=== PATIENT | female | born 1940 | race Hispanic/Latino ===

== ENCOUNTER 2018-08-29 06:57 | Inpatient (IN) | payer MEDICARE ==
[~2018-08-29] VITALS: Ht 167.6 cm; Wt 67.7 kg
[2018-08-29] MEDS ORDERED: ONDANSETRON HCL 4 MG/2 ML VIAL ONE (08:15)
[2018-08-29 08:29] LABS: BASOPHILS % (AUTO) 0.6 % (0.0-5.0); EOSINOPHILS % (AUTO) 0.3 % (0.0-8.0); HEMATOCRIT 31.4 % (36-48); LYMPHOCYTES % (AUTO) 14.6 % (21.0-51.0); MEAN CORPUSCULAR HEMOGLOBIN 35.7 pg (27.0-33.0); MEAN CORPUSCULAR HGB CONC 33.1 g/dL (32.0-36.0); MEAN CORPUSCULAR VOLUME 107.7 fL (79-99); MONOCYTES % (AUTO) 13.3 % (3.0-13.0); NEUTROPHILS % (AUTO) 71.2 % (40.0-77.0); PLATELET COUNT (AUTO) 145 K/uL (130-400); RED BLOOD CELL COUNT(AUTO) 2.91 MIL/uL (4.00-5.50); RED CELL DISTRIBUTION WIDTH 15.7 % (11.0-15.5); WHITE BLOOD COUNT (AUTO) 5.5 K/uL (4.8-10.8)
[2018-08-29 09:02] LABS: CREATININE 4.6 mg/dL (0.5-1.5); INR 0.97 (0.85-1.15); PARTIAL THROMBOPLASTIN TIME 31.5 SEC (26.3-35.5); POTASSIUM 4.8 mmol/L (3.5-5.1); PROTHROMBIN TIME 10.2 SEC (9.6-11.6)
[2018-08-29 09:06] LABS: BILIRUBIN,TOTAL 0.7 mg/dL (0.2-1.0); TOTAL PROTEIN, SERUM 7.8 g/dL (6.0-8.3)
[2018-08-29 09:45] LABS: BILIRUBIN,URINE NEGATIVE (NEGATIVE); COLOR,URINE YELLOW (YELLOW); GLUCOSE, URINE (UA) 100 mg/dL (NEGATIVE); KETONES,URINE NEGATIVE (NEGATIVE); LEUKOCYTE ESTERASE ,URINE SMALL (NEGATIVE); NITRATE,URINE NEGATIVE (NEGATIVE); OCCULT BLOOD,URINE TRACE-LYSED (NEGATIVE); PH,URINE >=9.0 (5.0-8.0); PROTEIN,URINE >=300 mg/dL (NEGATIVE)
[2018-08-29] MEDS ORDERED: CEFTRIAXONE SODIUM 1 GM ONE (09:52)
[2018-08-29] MEDS ORDERED: LEVOFLOXACIN 500 MG/D5W 100 ML 100 ML ONE (09:52)
[2018-08-29 10:01] LABS: APPEARANCE,URINE CLEAR (CLEAR); RBC,URINE 0-1 /HPF (0-1)
[2018-08-29 10:02] LABS: BACTERIA,URINE Few /HPF (None Seen)
[2018-08-29] MEDS: GUAIFENESIN-DM 200/20 MG 10 ML PO SCH ×4 (10:30→22:35)
[2018-08-29] MEDS ORDERED: ONDANSETRON HCL 4 MG/2 ML VIAL IV PRN (10:45)
[2018-08-29] MEDS ORDERED: LACTULOSE 20 GM/30 ML UDCUP PO PRN (10:45)
[2018-08-29] MEDS: INSULIN HUMULIN R 100 UNIT/ML 3ML SQ SCH ×3 (11:30→21:10)
[2018-08-29] MEDS ORDERED: IPRATROPIUM/ALBUTEROL SULFATE 3 ML SOLUTION IH ONE (12:21)
[2018-08-29] MEDS: IPRATROPIUM/ALBUTEROL SULFATE 3 ML SOLUTION IH SCH ×3 (12:24→23:10)
[2018-08-29 14:20] VITALS: BP 146/46
--- NOTE | 2018-08-29 14:30 | NUR ---
ADMISSION Received to room 228 via stretcher from ED. Upon arrival, pt is in no apparent distress. On room air. Diminished breath sounds. Non-productive cough. SL to RAC patent. Left arm AV fistula in place. (+) bruit/thrill. Last HD treatment 08/28/18. Assessment completed/recorded. Admission process completed. Present on arrival - non-healing ulcer to volar surface of right foot, base of right great toes. Existing drsg removed. Wound care rendered - painted with betadine, covered with non-adherent gauze drsg and secured with erin. Pt denies pain to site. Pt reports her outpt cut pressman is from [facility] office - ongoing treatment for approx. one year. States she visits MD every two weeks. Oriented to room, call light. Questions addressed.
[2018-08-29 16:08] VITALS: BP 174/59
[2018-08-29] MEDS: ACETAMINOPHEN 325 MG TAB PO PRN (16:56)
--- NOTE | 2018-08-29 17:00 | NUR ---
MD VISIT in to see pt - updated. Orders received - refer to chart.
[2018-08-29] MEDS ORDERED: LISI-613 PO (18:43)
[2018-08-29] MEDS ORDERED: vit d3 (18:43)
[2018-08-29] MEDS ORDERED: GLIP2.5T2 PO (18:43)
[2018-08-29] MEDS ORDERED: ONDA4TAB4 PO (18:43)
[2018-08-29] MEDS ORDERED: ATOR20TA PO (18:43)
[2018-08-29] MEDS ORDERED: BENZ-39 PO (18:43)
[2018-08-29] MEDS ORDERED: ASCO500T9 PO (18:43)
[2018-08-29] MEDS ORDERED: ESOM20CA31 PO (18:43)
[2018-08-29] MEDS ORDERED: VITA400C70 PO (18:43)
[2018-08-29] MEDS ORDERED: FOLI1TAB61 PO (18:43)
[2018-08-29] MEDS ORDERED: METO-391 PO (18:43)
[2018-08-29] MEDS ORDERED: ASPI-555 PO (18:43)
[2018-08-29 19:50] VITALS: BP 153/60
[2018-08-29] MEDS: DOCUSATE SODIUM 100 MG CAP PO SCH (20:29)
[2018-08-29] MEDS: FAMOTIDINE 20MG TAB 20 MG TAB PO SCH (20:29)
[2018-08-29] MEDS: BENZONATATE 100 MG CAPSULE PO SCH (20:29)
[2018-08-30] VITALS (7 sets, daily range): BP systolic 124–180; BP diastolic 44–70
[2018-08-30] MEDS: ACETAMINOPHEN 325 MG TAB PO PRN ×2 (02:57→21:41)
[2018-08-30 03:37] LABS: HEMATOCRIT 29.9 % (36-48); MEAN CORPUSCULAR HEMOGLOBIN 36.6 pg (27.0-33.0); MEAN CORPUSCULAR VOLUME 107.4 fL (79-99); PLATELET COUNT (AUTO) 134 K/uL (130-400); RED BLOOD CELL COUNT(AUTO) 2.79 MIL/uL (4.00-5.50); RED CELL DISTRIBUTION WIDTH 15.3 % (11.0-15.5); WHITE BLOOD COUNT (AUTO) 4.7 K/uL (4.8-10.8)
[2018-08-30 03:40] LABS: BAND NEUTROPHILS % (MANUAL) 20 % (0-2); LYMPHOCYTES % (MANUAL) 16 % (22-44); MAN.DIFF COMMENT-IMPRESSION MANUAL DIFFERENTIAL; MONOCYTES % (MANUAL) 4 % (2-9); PLATELET MORPHOLOGY COMMENT ADEQUATE; SEGMENTED NEUTROPHILS % 60 % (40-70)
[2018-08-30 03:58] LABS: ALBUMIN 2.8 g/dL (3.5-5.0); BILIRUBIN,DIRECT 0.1 mg/dL (0.0-0.3); BILIRUBIN,TOTAL 0.4 mg/dL (0.2-1.0); PHOSPHORUS 3.5 mg/dL (2.5-4.9); TOTAL PROTEIN, SERUM 7.3 g/dL (6.0-8.3)
[2018-08-30] MEDS: GUAIFENESIN-DM 200/20 MG 10 ML PO SCH ×6 (04:30→21:55)
[2018-08-30] MEDS: BENZONATATE 100 MG CAPSULE PO SCH ×3 (05:27→20:41)
[2018-08-30] MEDS: INSULIN HUMULIN R 100 UNIT/ML 3ML SQ SCH ×5 (06:11→20:43)
[2018-08-30] MEDS: IPRATROPIUM/ALBUTEROL SULFATE 3 ML SOLUTION IH SCH ×3 (06:41→18:59)
[2018-08-30] MEDS: DOCUSATE SODIUM 100 MG CAP PO SCH ×2 (09:45→20:50)
[2018-08-30] MEDS: LEVOFLOXACIN 250 MG/D5W 50ML 50 ML IV SCH (09:45)
[2018-08-30] MEDS: CEFTRIAXONE SODIUM 500 MG VIAL IV SCH (09:45)
[2018-08-30] MEDS: ENOXAPARIN SODIUM 30 MG/0.3 ML SQ SCH (09:46)
--- NOTE | 2018-08-30 11:18 | NUR ---
INITIAL: Met with pt this morning to discuss dcp. Pt states that she lives alone. Prior to admission she was independent w ambulation and aDLs. She has a walker avail if needed. Pt att[facility] @ 1pm. She has provider services 3hr/day. Per pt she plans to stay w her dtr Antonette @ dc if needed. Her sister Diana will assist w transportation. CM to continue to follow and wait for Md recommendations. Addendum: 08/30/18 at 1120 by CLARICE STEEN Amended: Links added.
[2018-08-30] MEDS ORDERED: BENZONATATE 100 MG CAPSULE PO PRN (12:00)
[2018-08-30] MEDS ORDERED: ONDANSETRON 4 MG TABLET PO PRN (12:00)
[2018-08-30] MEDS ORDERED: LISINOPRIL 10 MG TABLET PO SCH (13:30)
[2018-08-30] MEDS ORDERED: METOPROLOL TARTRATE 25 MG TAB PO SCH ×2 (13:30→21:00)
--- NOTE | 2018-08-30 13:30 | NUR ---
[facility] CONSULT CALLED IN. ADITI BRADFORD WAS UPDATED ON PATIENTS STATUS.
[2018-08-30] MEDS ORDERED: EPOETIN ALFA 10,000 UNIT/ML VIAL SQ SCH (14:00)
[2018-08-30] MEDS: PHARMACY COMMUNICATION MISC SCH ×2 (14:30→21:34)
[2018-08-30] MEDS ORDERED: HYDRALAZINE HCL 20 MG/ML VIAL IM PRN (15:00)
[2018-08-30] MEDS ORDERED: ONDANSETRON HCL 4 MG/2 ML VIAL IVP PRN (15:00)
[2018-08-30] MEDS: ATORVASTATIN CALCIUM 20 MG TABLET PO SCH (20:36)
[2018-08-30] MEDS: FAMOTIDINE 20MG TAB 20 MG TAB PO SCH (20:36)
[2018-08-30] MEDS: METHYLPREDNISOLONE SOD SUCC 40MG/ML 1ML IVP SCH (20:36)
[2018-08-30] MEDS: LISINOPRIL 20 MG TABLET PO SCH (20:37)
[2018-08-30] MEDS: METOPROLOL TARTRATE 25 MG TAB PO SCH (20:37)
[2018-08-30] MEDS: SODIUM CHLORIDE 3% FOR INHALATION 4 ML/AMP VIAL.NEB IH SCH (23:33)
[2018-08-31] VITALS (8 sets, daily range): BP systolic 154–192; BP diastolic 64–85
[2018-08-31] MEDS: GUAIFENESIN-DM 200/20 MG 10 ML PO SCH ×4 (03:34→22:41)
[2018-08-31 03:48] LABS: HEMATOCRIT 32.2 % (36-48); MEAN CORPUSCULAR HEMOGLOBIN 35.9 pg (27.0-33.0); MEAN CORPUSCULAR HGB CONC 33.5 g/dL (32.0-36.0); MEAN CORPUSCULAR VOLUME 107.2 fL (79-99); NUCLEATED RED BLOOD CELLS 0.1 % (0.0-0.19); PLATELET COUNT (AUTO) 141 K/uL (130-400); RED CELL DISTRIBUTION WIDTH 15.8 % (11.0-15.5); WHITE BLOOD COUNT (AUTO) 5.4 K/uL (4.8-10.8)
[2018-08-31] MEDS: METHYLPREDNISOLONE SOD SUCC 40MG/ML 1ML IVP SCH ×3 (04:28→21:38)
[2018-08-31] MEDS: BENZONATATE 100 MG CAPSULE PO SCH ×3 (04:28→21:38)
[2018-08-31 04:38] LABS: ALBUMIN 2.8 g/dL (3.5-5.0); BILIRUBIN,TOTAL 0.7 mg/dL (0.2-1.0); CREATININE 4.5 mg/dL (0.5-1.5); PHOSPHORUS 3.5 mg/dL (2.5-4.9); POTASSIUM 4.1 mmol/L (3.5-5.1); TOTAL PROTEIN, SERUM 7.8 g/dL (6.0-8.3)
[2018-08-31 04:48] LABS: TROPONIN I 2.13 ng/mL (0.00-0.06)
[2018-08-31 04:53] LABS: BAND NEUTROPHILS % (MANUAL) 12 % (0-2); LYMPHOCYTES % (MANUAL) 4 % (22-44); MAN.DIFF COMMENT-IMPRESSION MANUAL DIFFERENTIAL; MONOCYTES % (MANUAL) 16 % (2-9); PLATELET MORPHOLOGY COMMENT ADEQUATE; SEGMENTED NEUTROPHILS % 68 % (40-70)
[2018-08-31] MEDS: PHARMACY COMMUNICATION MISC SCH (05:38)
[2018-08-31] MEDS: INSULIN HUMULIN R 100 UNIT/ML 3ML SQ SCH ×4 (05:43→21:47)
[2018-08-31] MEDS: ESOMEPRAZOLE MAGNESIUM 20 MG PO SCH (05:47)
[2018-08-31] MEDS: SODIUM CHLORIDE 3% FOR INHALATION 4 ML/AMP VIAL.NEB IH SCH ×3 (07:34→18:52)
[2018-08-31] MEDS: FOLIC ACID/VITAMIN B COMP W-C 1 MG CAPSULE PO SCH (09:41)
[2018-08-31] MEDS: DOCUSATE SODIUM 100 MG CAP PO SCH ×2 (09:42→21:38)
[2018-08-31] MEDS: VITAMIN E 400 UNIT CAPSULE PO SCH (09:42)
[2018-08-31] MEDS: LISINOPRIL 20 MG TABLET PO SCH ×2 (09:42→21:38)
[2018-08-31] MEDS: METOPROLOL TARTRATE 25 MG TAB PO SCH ×2 (09:42→21:38)
[2018-08-31] MEDS: ASCORBIC ACID 500 MG TAB PO SCH (09:42)
[2018-08-31] MEDS: ENOXAPARIN SODIUM 30 MG/0.3 ML SQ SCH (09:43)
[2018-08-31] MEDS: ASPIRIN 81 MG EC TAB PO SCH (09:43)
[2018-08-31] MEDS: LEVOFLOXACIN 250 MG/D5W 50ML 50 ML IV SCH (09:44)
[2018-08-31] MEDS: CEFTRIAXONE SODIUM 500 MG VIAL IV SCH (11:08)
[2018-08-31] MEDS: AMLODIPINE BESYLATE 5 MG TAB PO SCH (11:12)
[2018-08-31] MEDS ORDERED: PHARMACY COMMUNICATION MISC SCH ×2 (12:00→21:30)
[2018-08-31] MEDS ORDERED: COMPOUND IV REFRIGERATED 1 EACH IVSOLN MISC PRN (12:15)
[2018-08-31] MEDS: IRON SUCROSE COMPLEX 100 MG in SODIUM CHLORIDE 0.9% 50 ML IV SCH (12:21)
[2018-08-31] MEDS: FAMOTIDINE 20MG TAB 20 MG TAB PO SCH (21:38)
[2018-08-31] MEDS: ATORVASTATIN CALCIUM 20 MG TABLET PO SCH (21:38)
--- NOTE | 2018-08-31 21:40 | NUR ---
MEDS DUE MEDS ADMINISTERED, TOLERATED WELL. NO DISTRESS NOTED. KEPT RESTED AND COMFORTABLE. ENCOURAGED TO SLEEP. CALL LIGHT WITHIN REACH. WILL MONITOR PT.
[2018-09-01] MEDS: SODIUM CHLORIDE 3% FOR INHALATION 4 ML/AMP VIAL.NEB IH SCH ×5 (00:14→23:19)
--- NOTE | 2018-09-01 02:00 | NUR ---
ROUNDS PT RESTING WELL, FAIRLY ASLEEP WITH RESPIRATIONS EVEN AND UNLABORED. NO NOTED DISTRESS. KEPT UNDISTURBED FOR NOW. WILL MONITOR PT.
[2018-09-01 03:58] VITALS: BP 148/65
[2018-09-01] MEDS: GUAIFENESIN-DM 200/20 MG 10 ML PO SCH ×4 (03:58→23:38)
[2018-09-01] MEDS: BENZONATATE 100 MG CAPSULE PO SCH ×3 (05:22→23:37)
[2018-09-01] MEDS: METHYLPREDNISOLONE SOD SUCC 40MG/ML 1ML IVP SCH ×3 (05:22→23:36)
--- NOTE | 2018-09-01 05:22 | NUR ---
SHOWER PT JUST HAD HER SHOWER, TOLERATED ACTIVITY WELL. DUE MEDS ADMINISTERED, TOLERATED WELL. KEPT RESTED. FOR MORE CARE.
[2018-09-01 06:04] LABS: HEMATOCRIT 32.3 % (36-48); MEAN CORPUSCULAR HEMOGLOBIN 36.2 pg (27.0-33.0); MEAN CORPUSCULAR HGB CONC 34.1 g/dL (32.0-36.0); NUCLEATED RED BLOOD CELLS 0.2 % (0.0-0.19); PLATELET COUNT (AUTO) 166 K/uL (130-400); RED BLOOD CELL COUNT(AUTO) 3.05 MIL/uL (4.00-5.50); RED CELL DISTRIBUTION WIDTH 15.8 % (11.0-15.5); WHITE BLOOD COUNT (AUTO) 10.9 K/uL (4.8-10.8)
[2018-09-01 06:15] LABS: CREATININE 5.8 mg/dL (0.5-1.5); POTASSIUM 4.5 mmol/L (3.5-5.1)
[2018-09-01] MEDS: ESOMEPRAZOLE MAGNESIUM 20 MG PO SCH (06:32)
[2018-09-01] MEDS: INSULIN HUMULIN R 100 UNIT/ML 3ML SQ SCH ×4 (06:33→21:00)
[2018-09-01 07:02] LABS: % IRON SATURATION 91.1 % (22-44)
[2018-09-01 08:00] VITALS: BP 180/80
[2018-09-01 08:16] LABS: HEPATITIS A ANTIBODY IGM Negative (Negative); HEPATITIS B CORE IGM Negative (Negative); HEPATITIS Bs ANTIGEN SCREEN P Negative (Negative)
[2018-09-01] MEDS: LISINOPRIL 20 MG TABLET PO SCH ×2 (09:00→23:37)
[2018-09-01] MEDS: AMLODIPINE BESYLATE 5 MG TAB PO SCH (09:00)
[2018-09-01] MEDS: ASCORBIC ACID 500 MG TAB PO SCH (09:00)
--- NOTE | 2018-09-01 09:00 | NUR ---
NORVASC AND LISINOPRIL HELD DUE TO PATIENT HAVING DIALYSIS TODAY PER DIALYSIS NURSE.
[2018-09-01] MEDS: FOLIC ACID/VITAMIN B COMP W-C 1 MG CAPSULE PO SCH (09:01)
[2018-09-01] MEDS: METOPROLOL TARTRATE 25 MG TAB PO SCH ×2 (09:01→23:38)
[2018-09-01] MEDS: ASPIRIN 81 MG EC TAB PO SCH (09:01)
[2018-09-01] MEDS: DOCUSATE SODIUM 100 MG CAP PO SCH ×2 (09:02→23:37)
[2018-09-01] MEDS: VITAMIN E 400 UNIT CAPSULE PO SCH (09:04)
[2018-09-01] MEDS: ENOXAPARIN SODIUM 30 MG/0.3 ML SQ SCH (09:05)
[2018-09-01] MEDS: LEVOFLOXACIN 250 MG/D5W 50ML 50 ML IV SCH (09:07)
[2018-09-01] MEDS: IRON SUCROSE COMPLEX 100 MG in SODIUM CHLORIDE 0.9% 50 ML IV SCH (09:54)
[2018-09-01] MEDS: CEFTRIAXONE SODIUM 500 MG VIAL IV SCH (09:56)
[2018-09-01 11:00] VITALS: BP 157/72
[2018-09-01 16:00] VITALS: BP 147/57
[2018-09-01 19:34] VITALS: BP 185/86
--- NOTE | 2018-09-01 21:05 | NUR ---
PATIENT REFUSED TO HAVE NASAL PCR PERFORMED. PENDING SPUTUM CULTURE
[2018-09-01 23:04] VITALS: BP 177/69
[2018-09-01] MEDS: ATORVASTATIN CALCIUM 20 MG TABLET PO SCH (23:37)
[2018-09-01] MEDS: FAMOTIDINE 20MG TAB 20 MG TAB PO SCH (23:37)
[2018-09-02 03:45] VITALS: BP 150/69
[2018-09-02] MEDS: BENZONATATE 100 MG CAPSULE PO SCH ×3 (05:12→21:10)
[2018-09-02] MEDS: METHYLPREDNISOLONE SOD SUCC 40MG/ML 1ML IVP SCH (05:12)
[2018-09-02] MEDS: GUAIFENESIN-DM 200/20 MG 10 ML PO SCH ×4 (05:12→22:30)
[2018-09-02 06:02] LABS: HEMATOCRIT 31.5 % (36-48); MEAN CORPUSCULAR HEMOGLOBIN 34.4 pg (27.0-33.0); MEAN CORPUSCULAR HGB CONC 32.6 g/dL (32.0-36.0); MEAN CORPUSCULAR VOLUME 105.3 fL (79-99); PLATELET COUNT (AUTO) 203 K/uL (130-400); RED BLOOD CELL COUNT(AUTO) 2.99 MIL/uL (4.00-5.50); RED CELL DISTRIBUTION WIDTH 15.8 % (11.0-15.5); WHITE BLOOD COUNT (AUTO) 12.4 K/uL (4.8-10.8)
[2018-09-02] MEDS: SODIUM CHLORIDE 3% FOR INHALATION 4 ML/AMP VIAL.NEB IH SCH ×4 (06:04→23:23)
[2018-09-02 06:27] LABS: CREATININE 3.3 mg/dL (0.5-1.5); POTASSIUM 3.9 mmol/L (3.5-5.1)
[2018-09-02] MEDS: INSULIN HUMULIN R 100 UNIT/ML 3ML SQ SCH ×4 (06:34→21:16)
[2018-09-02 07:30] VITALS: BP 196/76
[2018-09-02] MEDS: ESOMEPRAZOLE MAGNESIUM 20 MG PO SCH (07:30)
[2018-09-02] MEDS: VITAMIN E 400 UNIT CAPSULE PO SCH (08:44)
[2018-09-02] MEDS: ASPIRIN 81 MG EC TAB PO SCH (08:44)
[2018-09-02] MEDS: LISINOPRIL 20 MG TABLET PO SCH ×2 (08:44→21:10)
[2018-09-02] MEDS: AMLODIPINE BESYLATE 5 MG TAB PO SCH (08:44)
[2018-09-02] MEDS: FOLIC ACID/VITAMIN B COMP W-C 1 MG CAPSULE PO SCH (08:44)
[2018-09-02] MEDS: LEVOFLOXACIN 250 MG/D5W 50ML 50 ML IV SCH (08:44)
[2018-09-02] MEDS: ASCORBIC ACID 500 MG TAB PO SCH (08:44)
[2018-09-02] MEDS: DOCUSATE SODIUM 100 MG CAP PO SCH ×2 (08:44→21:10)
[2018-09-02] MEDS: METOPROLOL TARTRATE 25 MG TAB PO SCH ×2 (08:44→21:10)
[2018-09-02] MEDS: ENOXAPARIN SODIUM 30 MG/0.3 ML SQ SCH (08:45)
[2018-09-02] MEDS: CEFTRIAXONE SODIUM 500 MG VIAL IV SCH (09:00)
[2018-09-02 11:00] VITALS: BP 186/71
[2018-09-02 16:00] VITALS: BP 128/54
[2018-09-02 20:00] VITALS: BP 134/62
[2018-09-02] MEDS: FAMOTIDINE 20MG TAB 20 MG TAB PO SCH (21:09)
[2018-09-02] MEDS: ATORVASTATIN CALCIUM 20 MG TABLET PO SCH (21:10)
[2018-09-03] VITALS: BP 119/57
[2018-09-03 04:00] VITALS: BP 141/52
[2018-09-03] MEDS: BENZONATATE 100 MG CAPSULE PO SCH ×2 (04:21→13:52)
[2018-09-03] MEDS: GUAIFENESIN-DM 200/20 MG 10 ML PO SCH ×3 (04:21→17:15)
--- NOTE | 2018-09-03 04:32 | NUR ---
NO COUGH Pt slept well,Refused cough med.
[2018-09-03 04:58] LABS: HEMATOCRIT 29.9 % (36-48); MEAN CORPUSCULAR HEMOGLOBIN 35.8 pg (27.0-33.0); MEAN CORPUSCULAR HGB CONC 33.8 g/dL (32.0-36.0); MEAN CORPUSCULAR VOLUME 105.8 fL (79-99); NUCLEATED RED BLOOD CELLS 0.1 % (0.0-0.19); PLATELET COUNT (AUTO) 200 K/uL (130-400); RED BLOOD CELL COUNT(AUTO) 2.82 MIL/uL (4.00-5.50); RED CELL DISTRIBUTION WIDTH 15.9 % (11.0-15.5); WHITE BLOOD COUNT (AUTO) 10.6 K/uL (4.8-10.8)
[2018-09-03 05:05] LABS: CREATININE 4.9 mg/dL (0.5-1.5); MAGNESIUM 1.8 mg/dL (1.80-2.40); POTASSIUM 3.5 mmol/L (3.5-5.1)
[2018-09-03] MEDS: ESOMEPRAZOLE MAGNESIUM 20 MG PO SCH (05:41)
[2018-09-03] MEDS: INSULIN HUMULIN R 100 UNIT/ML 3ML SQ SCH ×3 (05:41→17:15)
[2018-09-03 06:11] LABS: BAND NEUTROPHILS % (MANUAL) 6 % (0-2); LYMPHOCYTES % (MANUAL) 18 % (22-44); MAN.DIFF COMMENT-IMPRESSION MANUAL DIF; METAMYELOCYTES % 1 % (0-0); MONOCYTES % (MANUAL) 4 % (2-9); PLATELET MORPHOLOGY COMMENT ADEQUATE; SEGMENTED NEUTROPHILS % 71 % (40-70)
[2018-09-03] MEDS: SODIUM CHLORIDE 3% FOR INHALATION 4 ML/AMP VIAL.NEB IH SCH ×2 (06:21→10:54)
[2018-09-03 08:14] VITALS: BP 182/65
[2018-09-03] MEDS ORDERED: NON-FORMULARY MEDICATION 1 EACH (Metoprolol Succinate 50 MG) PO SCH (09:00)
[2018-09-03] MEDS ORDERED: PREDNISONE 20 MG TABLET PO SCH (09:00)
[2018-09-03] MEDS: METOPROLOL TARTRATE 25 MG TAB PO SCH (11:32)
[2018-09-03] MEDS: ASCORBIC ACID 500 MG TAB PO SCH (11:32)
[2018-09-03] MEDS: DOCUSATE SODIUM 100 MG CAP PO SCH (11:32)
[2018-09-03] MEDS: VITAMIN E 400 UNIT CAPSULE PO SCH (11:32)
[2018-09-03] MEDS: FOLIC ACID/VITAMIN B COMP W-C 1 MG CAPSULE PO SCH (11:32)
[2018-09-03] MEDS: ASPIRIN 81 MG EC TAB PO SCH (11:32)
[2018-09-03] MEDS: AMLODIPINE BESYLATE 5 MG TAB PO SCH (11:32)
[2018-09-03] MEDS: LISINOPRIL 20 MG TABLET PO SCH (11:33)
[2018-09-03] MEDS: ENOXAPARIN SODIUM 30 MG/0.3 ML SQ SCH (11:33)
[2018-09-03] MEDS: LEVOFLOXACIN 250 MG/D5W 50ML 50 ML IV SCH (11:38)
[2018-09-03 11:43] VITALS: BP 131/62
[2018-09-03] MEDS: ACETAMINOPHEN 325 MG TAB PO PRN (11:50)
[2018-09-03] MEDS: CEFTRIAXONE SODIUM 500 MG VIAL IV SCH (12:40)
[2018-09-03] MEDS ORDERED: MAGNESIUM 2GM PREMIX 50ML 50 ML IV PRN (14:00)
[2018-09-03] MEDS ORDERED: LEVO250T59 PO (15:21)
[2018-09-03 16:09] VITALS: BP 134/64
--- NOTE | 2018-09-03 18:00 | NUR ---
DISCHARGE INSTRUCTIONS GIVEN. IV DISCONTINUED WITH INNER CANNULA INTACT . INSTRUCTED TO FOLLOW UP WITH PCP AND DR. FOX OFFICE. ALL QUESTIONS ANSWERED. PATIENT TO MAKE APPOINTMENT ON THURSDAY .L
== END 2018-09-03 18:00 | disposition home or self-care (01) | DRG 280 ==
LOC: EDH 06:57 → EDHIP 10:33 → 2DH 14:15 → 3DH 08-31 06:32
PROVIDERS: ADMIT Internal Medicine; ATTEND Internal Medicine
PROC: 5A1D70Z Performance of Urinary Filtration, Intermittent, Less than 6 Hours Per Day (ICD-10-PCS; principal; 2018-08-30)
PROC: 5A1D70Z Performance of Urinary Filtration, Intermittent, Less than 6 Hours Per Day (ICD-10-PCS; 2018-09-01)
PROC: 5A1D70Z Performance of Urinary Filtration, Intermittent, Less than 6 Hours Per Day (ICD-10-PCS; 2018-09-03)
DX: I21.4 Non-ST elevation (NSTEMI) myocardial infarction (principal); J18.9 Pneumonia, unspecified organism; N18.6 End stage renal disease; J18.1 Lobar pneumonia, unspecified organism; E44.1 Mild protein-calorie malnutrition; I12.0 Hypertensive chronic kidney disease with stage 5 chronic kidney disease or end stage renal disease; J40 Bronchitis, not specified as acute or chronic; E11.21 Type 2 diabetes mellitus with diabetic nephropathy; E11.22 Type 2 diabetes mellitus with diabetic chronic kidney disease; D64.9 Anemia, unspecified; E11.51 Type 2 diabetes mellitus with diabetic peripheral angiopathy without gangrene; E78.5 Hyperlipidemia, unspecified; E87.70 Fluid overload, unspecified; I25.10 Atherosclerotic heart disease of native coronary artery without angina pectoris; I25.5 Ischemic cardiomyopathy; I34.0 Nonrheumatic mitral (valve) insufficiency; K21.9 Gastro-esophageal reflux disease without esophagitis; K40.20 Bilateral inguinal hernia, without obstruction or gangrene, not specified as recurrent; E11.65 Type 2 diabetes mellitus with hyperglycemia; K57.90 Diverticulosis of intestine, part unspecified, without perforation or abscess without bleeding; K59.00 Constipation, unspecified; I25.2 Old myocardial infarction; Z90.11 Acquired absence of right breast and nipple; Z90.710 Acquired absence of both cervix and uterus; Z99.2 Dependence on renal dialysis; Z68.24 Body mass index [BMI] 24.0-24.9, adult; Z88.0 Allergy status to penicillin; Z88.5 Allergy status to narcotic agent
CPT/HCPCS: 36415; 71045; 71250; 74176; 76705; 80048; 80053; 80061; 80074; 80076; 81001; 82150; 82550; 82728; 82948; 83540; 83550; 83605; 83690; 83735; 83874; 84100; 84484; 85025; 85027; 85610; 85730; 87040; 87804; 90935; 93005; 94640; 94664; 94668; G0378; J0360; J0696; J0885; J1650; J1756; J1815; J1956; J2405; J2920; J3475

== ENCOUNTER 2018-12-03 18:13 | Observation (INO) | payer MEDICARE ==
[~2018-12-03] VITALS: Ht 167.6 cm; Wt 71.0 kg
[~2018-12-03 18:13] MED LIST: ASCO500T9 PO; ASPI-555 PO; ATOR20TA PO; BENZ-39 PO; ESOM20CA31 PO; FOLI1TAB61 PO; GLIP2.5T2 PO; LEVO250T59 PO; LISI-613 PO; METO-391 PO; ONDA4TAB4 PO; VITA400C70 PO; vit d3
[2018-12-03 18:45] LABS: BASOPHILS % (AUTO) 0.3 % (0.0-5.0); EOSINOPHILS % (AUTO) 1.7 % (0.0-8.0); HEMATOCRIT 37.3 % (36-48); LYMPHOCYTES % (AUTO) 16.4 % (21.0-51.0); MEAN CORPUSCULAR HEMOGLOBIN 36.7 pg (27.0-33.0); MEAN CORPUSCULAR HGB CONC 33.7 g/dL (32.0-36.0); MONOCYTES % (AUTO) 9.8 % (3.0-13.0); NEUTROPHILS % (AUTO) 71.8 % (40.0-77.0); PLATELET COUNT (AUTO) 166 K/uL (130-400); RED BLOOD CELL COUNT(AUTO) 3.43 MIL/uL (4.00-5.50); RED CELL DISTRIBUTION WIDTH 15.7 % (11.0-15.5); WHITE BLOOD COUNT (AUTO) 8.6 K/uL (4.8-10.8)
[2018-12-03 18:52] LABS: CREATININE 3.2 mg/dL (0.5-1.5); POTASSIUM 4.2 mmol/L (3.5-5.1)
[2018-12-03 18:54] LABS: INR 0.95 (0.85-1.15); PARTIAL THROMBOPLASTIN TIME 28.9 SEC (26.3-35.5)
[2018-12-03 19:01] LABS: ALBUMIN 3.7 g/dL (3.5-5.0); BILIRUBIN,TOTAL 0.8 mg/dL (0.2-1.0); TOTAL PROTEIN, SERUM 8.8 g/dL (6.0-8.3)
[2018-12-03] MEDS ORDERED: HYDRALAZINE HCL 20 MG/ML VIAL ONE (19:46)
[2018-12-03] MEDS ORDERED: HYDRALAZINE HCL 20 MG/ML VIAL IV PRN (23:30)
[2018-12-04 00:20] VITALS: BP 162/61
[2018-12-04] MEDS ORDERED: LEVO250T59 PO (01:04)
[2018-12-04] MEDS ORDERED: METO-408 PO (01:04)
[2018-12-04] MEDS ORDERED: DORZ10DR14 OU (01:04)
[2018-12-04] MEDS ORDERED: BIMA2.5D4 OU (01:04)
[2018-12-04] MEDS ORDERED: DEXTROSE 50%-WATER 50 ML DISP.SYRIN IV PRN (02:15)
[2018-12-04] MEDS ORDERED: GLUCAGON 1MG KIT 1 MG ML IM PRN (02:15)
[2018-12-04 03:20] VITALS: BP 124/52
[2018-12-04 05:43] LABS: BASOPHILS % (AUTO) 0.5 % (0.0-5.0); HEMATOCRIT 33.7 % (36-48); LYMPHOCYTES % (AUTO) 34.3 % (21.0-51.0); MEAN CORPUSCULAR VOLUME 108.6 fL (79-99); MONOCYTES % (AUTO) 14.3 % (3.0-13.0); NEUTROPHILS % (AUTO) 47.9 % (40.0-77.0); NUCLEATED RED BLOOD CELLS 0.1 % (0.0-0.19); PLATELET COUNT (AUTO) 132 K/uL (130-400); RED CELL DISTRIBUTION WIDTH 15.1 % (11.0-15.5); WHITE BLOOD COUNT (AUTO) 6.5 K/uL (4.8-10.8)
--- NOTE | 2018-12-04 05:50 | NUR ---
HYPOGLYCEMIA-Low blood sugar 52mg/dl, administered one ampule D50 IV. Patient AAOx3, asymptomatic. Will continue to monitor.
[2018-12-04 05:55] LABS: BILIRUBIN,TOTAL 0.7 mg/dL (0.2-1.0); CREATININE 4.1 mg/dL (0.5-1.5); MAGNESIUM 1.7 mg/dL (1.80-2.40); POTASSIUM 4.4 mmol/L (3.5-5.1); TOTAL PROTEIN, SERUM 7.4 g/dL (6.0-8.3)
[2018-12-04] MEDS: INSULIN HUMULIN R 100 UNIT/ML 3ML SQ SCH ×2 (05:56→11:30)
--- NOTE | 2018-12-04 07:00 | NUR ---
HYPOGLYCEMIA-Blood sugar re-sfnyy=830oi/dl after 1 ampule of D50. Patient AAOx3, no acute distress noted.
[2018-12-04 08:00] VITALS: BP 144/59
[2018-12-04] MEDS ORDERED: FAMOTIDINE 20MG TAB 20 MG TAB PO SCH (09:00)
[2018-12-04] MEDS ORDERED: ***HM***Metoprolol Succinate 25 MG PO SCH (09:00)
[2018-12-04] MEDS ORDERED: VITAMIN E 400 UNIT CAPSULE PO SCH (09:00)
[2018-12-04] MEDS ORDERED: HEPARIN SODIUM 5000UNIT/ML 1ML VIAL SQ SCH (09:00)
[2018-12-04] MEDS ORDERED: DORZOLAMIDE HCL/TIMOLOL MALEAT DROPS 10 ML BOTTLE OU SCH (09:00)
[2018-12-04] MEDS ORDERED: ASPIRIN 81 MG EC TAB PO SCH (09:00)
[2018-12-04] MEDS ORDERED: ASCORBIC ACID 500 MG TAB PO SCH (09:00)
[2018-12-04] MEDS ORDERED: FOLIC ACID/VITAMIN B COMP W-C 1 MG CAP/TAB PO SCH (09:00)
[2018-12-04 12:00] VITALS: BP 164/79
[2018-12-04] MEDS ORDERED: GABAPENTIN 100 MG CAPSULE PO SCH (14:15)
[2018-12-04] MEDS ORDERED: ATORVASTATIN CALCIUM 20 MG TABLET PO SCH (21:00)
[2018-12-04] MEDS ORDERED: HOME MEDICATION 1 EACH PO SCH (21:00)
[2018-12-04] MEDS ORDERED: BIMATOPROST OU SCH (21:00)
[2018-12-05] MEDS ORDERED: GABAPENTIN 100 MG CAPSULE PO SCH (09:00)
== END 2018-12-04 17:50 | disposition home or self-care (01) ==
LOC: EDH 18:13 → EDHIP 23:21 → 3AH 12-04 00:25
PROVIDERS: ADMIT Internal Medicine; ATTEND Internal Medicine
DX: R41.82 Altered mental status, unspecified (principal); I16.0 Hypertensive urgency; I12.0 Hypertensive chronic kidney disease with stage 5 chronic kidney disease or end stage renal disease; N18.6 End stage renal disease; R42 Dizziness and giddiness; E11.22 Type 2 diabetes mellitus with diabetic chronic kidney disease; E11.42 Type 2 diabetes mellitus with diabetic polyneuropathy; E78.5 Hyperlipidemia, unspecified; E87.1 Hypo-osmolality and hyponatremia; E11.621 Type 2 diabetes mellitus with foot ulcer; L97.519 Non-pressure chronic ulcer of other part of right foot with unspecified severity; Z89.429 Acquired absence of other toe(s), unspecified side; Z90.710 Acquired absence of both cervix and uterus; Z99.2 Dependence on renal dialysis; Z88.0 Allergy status to penicillin; Z88.5 Allergy status to narcotic agent; Z79.899 Other long term (current) drug therapy
CPT/HCPCS: 36415 ×2; 70450; 70551; 71045; 80053 ×2; 82550; 82948 ×4; 83721; 83735; 84484; 85025 ×2; 85610; 85730; 93005 ×2; 93970; 96372; 96374; 99284; A4600; G0378 ×18; J0360; J1644; J7070

== ENCOUNTER 2019-01-27 15:59 | Emergency (ER) | payer MEDICARE ==
[~2019-01-27 15:59] MED LIST changes: -BENZ-39 PO; +BIMA2.5D4 OU; +DORZ10DR14 OU; -LISI-613 PO; -METO-391 PO; +METO-408 PO; -ONDA4TAB4 PO
[2019-01-27] MEDS ORDERED: HYDRALAZINE HCL 20 MG/ML VIAL ONE (17:23)
[2019-01-27 17:53] LABS: BASOPHILS % (AUTO) 0.4 % (0.0-5.0); EOSINOPHILS % (AUTO) 1.4 % (0.0-8.0); HEMATOCRIT 34.1 % (36-48); LYMPHOCYTES % (AUTO) 26.6 % (21.0-51.0); MEAN CORPUSCULAR HEMOGLOBIN 35.2 pg (27.0-33.0); MEAN CORPUSCULAR HGB CONC 33.9 g/dL (32.0-36.0); MEAN CORPUSCULAR VOLUME 103.7 fL (79-99); NEUTROPHILS % (AUTO) 60.6 % (40.0-77.0); PLATELET COUNT (AUTO) 127 K/uL (130-400); RED BLOOD CELL COUNT(AUTO) 3.29 MIL/uL (4.00-5.50); RED CELL DISTRIBUTION WIDTH 14.9 % (11.0-15.5); WHITE BLOOD COUNT (AUTO) 8.2 K/uL (4.8-10.8)
[2019-01-27 18:01] LABS: CREATININE 4.6 mg/dL (0.5-1.5); POTASSIUM 4.5 mmol/L (3.5-5.1)
[2019-01-27 18:05] LABS: ALBUMIN 3.6 g/dL (3.5-5.0); BILIRUBIN,TOTAL 0.5 mg/dL (0.2-1.0); TOTAL PROTEIN, SERUM 8.4 g/dL (6.0-8.3)
== END 2019-01-27 19:23 | disposition home or self-care (01) ==
LOC: EDH 15:59
DX: I16.0 Hypertensive urgency (principal); I12.0 Hypertensive chronic kidney disease with stage 5 chronic kidney disease or end stage renal disease; N18.6 End stage renal disease; E11.22 Type 2 diabetes mellitus with diabetic chronic kidney disease; E78.5 Hyperlipidemia, unspecified; Z88.0 Allergy status to penicillin; Z88.6 Allergy status to analgesic agent; Z99.2 Dependence on renal dialysis
CPT/HCPCS: 36415; 80053; 82550; 84484; 85025; 93005; 96374; 99285; J0360

== ENCOUNTER → 2019-11-08 | Outpatient (CLI) | payer MEDICARE ==
[~2019-11-08] MED LIST changes: +ASCO500T20 PO; -ASCO500T9 PO; -ASPI-555 PO; +ASPI-556 PO; -LEVO250T59 PO; +METO25 PO; +PRED10B PO; +VITA-164 PO; -VITA400C70 PO
== END | disposition home or self-care (01) ==
LOC: SHCH 10:35
PROVIDERS: ATTEND Internal Medicine Cardiovascular Disease
DX: I65.21 Occlusion and stenosis of right carotid artery (principal); I10 Essential (primary) hypertension
CPT/HCPCS: 93306; 93880

== ENCOUNTER 2019-12-02 16:17 | Inpatient (IN) | payer MEDICARE ==
[~2019-12-02] VITALS: Ht 167.6 cm; Wt 67.9 kg
[2019-12-02] MEDS ORDERED: ASPIRIN 325 MG TABLET ONE (16:26)
[2019-12-02 16:37] LABS: BASOPHILS % (AUTO) 0.4 % (0.0-5.0); EOSINOPHILS % (AUTO) 1.2 % (0.0-8.0); HEMATOCRIT 33.6 % (36-48); LYMPHOCYTES % (AUTO) 11.2 % (21.0-51.0); MEAN CORPUSCULAR HEMOGLOBIN 33.9 pg (27.0-33.0); MEAN CORPUSCULAR VOLUME 109.4 fL (79-99); NEUTROPHILS % (AUTO) 73.6 % (40.0-77.0); PLATELET COUNT (AUTO) 227 K/uL (130-400); RED BLOOD CELL COUNT(AUTO) 3.07 MIL/uL (4.00-5.50); RED CELL DISTRIBUTION WIDTH 15.1 % (11.0-15.5); WHITE BLOOD COUNT (AUTO) 11.3 K/uL (4.8-10.8)
[2019-12-02 16:50] LABS: INR 0.94 (0.85-1.15); PROTHROMBIN TIME 10.2 SEC (9.6-11.6)
[2019-12-02 16:53] LABS: ALBUMIN 2.6 g/dL (3.5-5.0); BILIRUBIN,TOTAL 0.5 mg/dL (0.2-1.0); CREATININE 6.8 mg/dL (0.5-1.5); POTASSIUM 4.4 mmol/L (3.5-5.1); TOTAL PROTEIN, SERUM 8.3 g/dL (6.0-8.3)
[2019-12-02 17:04] LABS: B-TYPE NATRIURETIC PEPTIDE 2410 pg/mL (0-100)
[2019-12-02] MEDS ORDERED: INSULIN HUMULIN R 100 UNIT/ML 3ML ONE (17:33)
[2019-12-02] MEDS ORDERED: IOHEXOL-350 75 ML VIAL IV ONE (19:21)
[2019-12-03] VITALS (7 sets, daily range): BP systolic 103–168; BP diastolic 47–71
--- NOTE | 2019-12-03 00:15 | NUR ---
REPORT RECEIVED FROM VIOLETA HERNÁNDEZ. PT ADMITTED FOR FLUID OVER LOAD AND POSSIBLE PNA. PT IS HAVING POSSIBLE HD IN THE AM.
[2019-12-03 05:19] LABS: HEMATOCRIT 29.9 % (36-48); MEAN CORPUSCULAR HGB CONC 32.8 g/dL (32.0-36.0); MEAN CORPUSCULAR VOLUME 106.8 fL (79-99); PLATELET COUNT (AUTO) 227 K/uL (130-400); RED CELL DISTRIBUTION WIDTH 15.2 % (11.0-15.5); WHITE BLOOD COUNT (AUTO) 11.5 K/uL (4.8-10.8)
[2019-12-03 05:31] LABS: POTASSIUM 4.6 mmol/L (3.5-5.1)
[2019-12-03 05:38] LABS: BAND NEUTROPHILS % (MANUAL) 5 % (0-2); EOSINOPHILS % (MANUAL) 4 % (1-6); LYMPHOCYTES % (MANUAL) 16 % (22-44); MAN.DIFF COMMENT-IMPRESSION MANUAL DIFFERENTIAL; MONOCYTES % (MANUAL) 10 % (2-9); PLATELET MORPHOLOGY COMMENT ADEQUATE; SEGMENTED NEUTROPHILS % 65 % (40-70)
[2019-12-03] MEDS: INSULIN R PO SS1 SQ SCH ×4 (06:08→22:42)
[2019-12-03] MEDS ORDERED: HYDROMORPHONE 1 MG/1 ML AMP IVP PRN (06:15)
[2019-12-03] MEDS ORDERED: ONDANSETRON HCL 4 MG/2 ML VIAL IVP PRN (06:15)
[2019-12-03] MEDS ORDERED: GLUCAGON 1MG KIT 1 MG ML IM PRN (06:15)
[2019-12-03] MEDS ORDERED: DEXTROSE 50%-WATER 50 ML DISP.SYRIN IV PRN (06:15)
[2019-12-03] MEDS ORDERED: INSULIN HUMULIN R 100 UNIT/ML 3ML SQ SCH (07:30)
[2019-12-03] MEDS: ACETAMINOPHEN 325 MG TAB PO PRN (09:00)
[2019-12-03] MEDS: PANTOPRAZOLE 40 MG/VIAL IVP SCH (09:49)
[2019-12-03] MEDS: AZITHROMYCIN 500MG+NS 250ML 250 ML IV SCH (09:50)
[2019-12-03] MEDS: ENOXAPARIN SODIUM 30 MG/0.3 ML SQ SCH (09:51)
[2019-12-03] MEDS: CEFTRIAXONE SODIUM 1 GM IVP SCH (13:09)
--- NOTE | 2019-12-03 15:54 | NUR ---
CM NOTE CM attempted call to room. No answer. CM then attempted call to [phone], no answer left voicemail. CM also attempted call to [phone], no answer unable to leave message. CM to reattempt at a later time.
[2019-12-04] MEDS ORDERED: CALC667T8 PO (00:40)
[2019-12-04] MEDS ORDERED: METO-391 PO (00:40)
[2019-12-04] MEDS ORDERED: PANT20TA PO (00:40)
[2019-12-04] MEDS ORDERED: GLIP2.5T2 PO (00:40)
[2019-12-04] MEDS ORDERED: CHOL100018 PO (00:40)
[2019-12-04] MEDS ORDERED: ASPI-1197 PO (00:40)
[2019-12-04] MEDS ORDERED: ATOR10 PO (00:40)
[2019-12-04] MEDS ORDERED: ASCO500C18 PO (00:40)
[2019-12-04] MEDS ORDERED: VITA100051 PO (00:40)
[2019-12-04] MEDS ORDERED: FOLI0.8T2 PO (00:40)
[2019-12-04 04:00] VITALS: BP 119/85
--- NOTE | 2019-12-04 05:44 | NUR ---
PATIENT RESTING IN BED. DENIES SOB AT THIS TIME. NO BLEEDING TO THE RESHMA FISTULA. NO SWELLING TO EXTREMITIES. WILL CONTINUE TO MONITOR.
[2019-12-04 06:09] VITALS: BP 119/70
[2019-12-04] MEDS: INSULIN R PO SS1 SQ SCH ×4 (07:30→20:26)
[2019-12-04] MEDS: ENOXAPARIN SODIUM 30 MG/0.3 ML SQ SCH (10:56)
[2019-12-04] MEDS: AZITHROMYCIN 500MG+NS 250ML 250 ML IV SCH (10:56)
[2019-12-04] MEDS: PANTOPRAZOLE 40 MG/VIAL IVP SCH (10:56)
[2019-12-04 11:00] VITALS: BP 116/57
[2019-12-04] MEDS: CEFTRIAXONE SODIUM 1 GM IVP SCH (13:35)
[2019-12-04 16:00] VITALS: BP 143/63
--- NOTE | 2019-12-04 18:06 | NUR ---
cm note spoke with pt, daughter Tanesha Shaw currently staying with her at home. states is indepedent with ambulation, no dme. has provider 3hrs to assist with some adls, daughter transports to dialysis. pt goes ni [facility] schedule. state dc plan is back to same setting at time of dc. no dc needs. Addendum: 12/04/19 at 1810 by RONEN BO CM Amended: Links added.
[2019-12-04 20:00] VITALS: BP 144/65
[2019-12-05] VITALS (8 sets, daily range): BP systolic 102–157; BP diastolic 52–88
[2019-12-05] MEDS: ACETAMINOPHEN 325 MG TAB PO PRN ×2 (04:00→17:14)
[2019-12-05 05:30] LABS: BASOPHILS % (AUTO) 0.8 % (0.0-5.0); EOSINOPHILS % (AUTO) 3.3 % (0.0-8.0); HEMATOCRIT 30.1 % (36-48); LYMPHOCYTES % (AUTO) 18.8 % (21.0-51.0); MEAN CORPUSCULAR HEMOGLOBIN 34.5 pg (27.0-33.0); MEAN CORPUSCULAR HGB CONC 31.9 g/dL (32.0-36.0); MEAN CORPUSCULAR VOLUME 108.3 fL (79-99); MONOCYTES % (AUTO) 14.1 % (3.0-13.0); NEUTROPHILS % (AUTO) 62.4 % (40.0-77.0); PLATELET COUNT (AUTO) 281 K/uL (130-400); RED BLOOD CELL COUNT(AUTO) 2.78 MIL/uL (4.00-5.50); RED CELL DISTRIBUTION WIDTH 14.9 % (11.0-15.5); WHITE BLOOD COUNT (AUTO) 9.5 K/uL (4.8-10.8)
[2019-12-05 06:21] LABS: ALBUMIN 2.2 g/dL (3.5-5.0); BILIRUBIN,TOTAL 0.4 mg/dL (0.2-1.0); CREATININE 6.4 mg/dL (0.5-1.5); PHOSPHORUS 3.7 mg/dL (2.5-4.9); TOTAL PROTEIN, SERUM 7.6 g/dL (6.0-8.3)
[2019-12-05] MEDS: INSULIN R PO SS1 SQ SCH ×4 (06:23→20:41)
[2019-12-05] MEDS: AZITHROMYCIN 500MG+NS 250ML 250 ML IV SCH (08:44)
[2019-12-05] MEDS: PANTOPRAZOLE 40 MG/VIAL IVP SCH (08:45)
[2019-12-05] MEDS: ENOXAPARIN SODIUM 30 MG/0.3 ML SQ SCH (08:46)
[2019-12-05] MEDS: CEFTRIAXONE SODIUM 1 GM IVP SCH ×2 (13:00→18:29)
--- NOTE | 2019-12-05 14:54 | NUR ---
per EDGAR Pena - patient is on Dialysis.Will attempt to initiate skilled Physical Therapy evaluation tomorrow 12/06/2019 as per ordered by . Addendum: 12/05/19 at 1456 by VIKASH RICO, PT PT Amended: Links added.
--- NOTE | 2019-12-05 15:56 | NUR ---
PAGED DR. FOX TO NOTIFY RE:PT. CONVERTED TO AFIB-106; ASYMPTOMATIC. AWAITING RESPONSE.
[2019-12-05 18:09] LABS: HEPATITIS A ANTIBODY IGM Negative (Negative); HEPATITIS B CORE IGM Negative (Negative); HEPATITIS Bs ANTIGEN SCREEN P Negative (Negative)
[2019-12-05] MEDS: METOPROLOL SUCCINATE 50 MG TAB.SR.24H PO SCH (20:41)
--- NOTE | 2019-12-05 22:36 | NUR ---
Assessment Patient has been assessed. She is not showing any S/S of distress. Vitals are stable as well. The ulcer on her right foot has been cleansed and dressed. She is being closely monitored.
--- NOTE | 2019-12-05 22:39 | NUR ---
Consult for Obinna Yeboah refused the consult for the patient. His reasoning is that this is not a new onset for the patient, HR is stable, and that she is already covered with metoprolol.
[2019-12-06 03:48] VITALS: BP 114/56
[2019-12-06 05:10] LABS: HEMATOCRIT 31.7 % (36-48); MEAN CORPUSCULAR HEMOGLOBIN 34.3 pg (27.0-33.0); MEAN CORPUSCULAR HGB CONC 32.2 g/dL (32.0-36.0); MEAN CORPUSCULAR VOLUME 106.7 fL (79-99); RED BLOOD CELL COUNT(AUTO) 2.97 MIL/uL (4.00-5.50); RED CELL DISTRIBUTION WIDTH 14.7 % (11.0-15.5); WHITE BLOOD COUNT (AUTO) 8.9 K/uL (4.8-10.8)
[2019-12-06 05:13] LABS: CREATININE 4.5 mg/dL (0.5-1.5); POTASSIUM 3.9 mmol/L (3.5-5.1)
[2019-12-06] MEDS: INSULIN R PO SS1 SQ SCH ×4 (05:50→20:55)
[2019-12-06 08:37] VITALS: BP 120/72
[2019-12-06] MEDS: METOPROLOL SUCCINATE 50 MG TAB.SR.24H PO SCH ×2 (08:53→20:54)
[2019-12-06] MEDS: ASPIRIN 81 MG EC TAB PO SCH (08:53)
[2019-12-06] MEDS: AZITHROMYCIN 500MG+NS 250ML 250 ML IV SCH (08:53)
[2019-12-06] MEDS: PANTOPRAZOLE 40 MG/VIAL IVP SCH (08:57)
[2019-12-06] MEDS: ENOXAPARIN SODIUM 30 MG/0.3 ML SQ SCH (08:58)
--- NOTE | 2019-12-06 11:15 | NUR ---
RECEIVED CALL FROM PT.'S SON. QUESTIONS ANSWERED RE:COVID TESTING PERFORMED, VERBALIZED UNDERSTANDING. Addendum: 12/06/19 at 1213 by KIT GOMEZ RN RN PT.'S SON ASKED THREE TIMES IF DR. FOX HAD SEEN PT. THIS A.M.; SON INFORMED THREE TIMES DR. FOX HAS NOT ROUNDED YET TODAY.
--- NOTE | 2019-12-06 11:48 | NUR ---
DR. FOX IN ROOM SPEAKING WITH PT. RE:PLAN OF CARE. QUESTIONS ANSWERED BY DR. FOX.
[2019-12-06] MEDS: CEFTRIAXONE SODIUM 1 GM IVP SCH (12:09)
[2019-12-06 12:57] VITALS: BP 127/72
[2019-12-06 16:30] VITALS: BP 142/67
[2019-12-06 19:58] VITALS: BP 129/69
[2019-12-06 23:33] VITALS: BP 130/60
[2019-12-07 04:16] VITALS: BP 114/61
[2019-12-07 05:53] LABS: HEMATOCRIT 32.6 % (36-48); MEAN CORPUSCULAR HGB CONC 31.6 g/dL (32.0-36.0); MEAN CORPUSCULAR VOLUME 107.6 fL (79-99); RED BLOOD CELL COUNT(AUTO) 3.03 MIL/uL (4.00-5.50); RED CELL DISTRIBUTION WIDTH 14.6 % (11.0-15.5); WHITE BLOOD COUNT (AUTO) 8.4 K/uL (4.8-10.8)
[2019-12-07 05:58] LABS: CREATININE 6.1 mg/dL (0.5-1.5); MAGNESIUM 1.9 mg/dL (1.80-2.40); POTASSIUM 4.3 mmol/L (3.5-5.1)
[2019-12-07] MEDS: INSULIN R PO SS1 SQ SCH ×3 (06:13→15:35)
[2019-12-07 08:00] VITALS: BP 122/57
[2019-12-07] MEDS: METOPROLOL SUCCINATE 50 MG TAB.SR.24H PO SCH (10:20)
[2019-12-07] MEDS: PANTOPRAZOLE 40 MG/VIAL IVP SCH (10:21)
[2019-12-07] MEDS: ASPIRIN 81 MG EC TAB PO SCH (10:21)
[2019-12-07] MEDS: AZITHROMYCIN 500MG+NS 250ML 250 ML IV SCH (10:21)
[2019-12-07] MEDS: ENOXAPARIN SODIUM 30 MG/0.3 ML SQ SCH (10:22)
[2019-12-07 11:47] VITALS: BP 125/72
[2019-12-07] MEDS: CEFTRIAXONE SODIUM 1 GM IVP SCH (13:00)
[2019-12-07 16:00] VITALS: BP 139/77
== END 2019-12-07 18:50 | disposition home or self-care (01) | DRG 193 ==
LOC: EDH 16:17 → EDHIP 20:40 → 4DH 12-03 00:06 → 4CH 12-04 21:35
PROVIDERS: ADMIT Internal Medicine Nephrology; ATTEND Internal Medicine Nephrology
PROC: 5A1D70Z Performance of Urinary Filtration, Intermittent, Less than 6 Hours Per Day (ICD-10-PCS; principal; 2019-12-03)
PROC: 5A1D70Z Performance of Urinary Filtration, Intermittent, Less than 6 Hours Per Day (ICD-10-PCS; 2019-12-05)
PROC: 5A1D70Z Performance of Urinary Filtration, Intermittent, Less than 6 Hours Per Day (ICD-10-PCS; 2019-12-07)
DX: J18.9 Pneumonia, unspecified organism (principal); N18.6 End stage renal disease; I12.0 Hypertensive chronic kidney disease with stage 5 chronic kidney disease or end stage renal disease; J98.11 Atelectasis; Z99.2 Dependence on renal dialysis; Z20.828 Contact with and (suspected) exposure to other viral communicable diseases; D64.9 Anemia, unspecified; E11.22 Type 2 diabetes mellitus with diabetic chronic kidney disease; E11.51 Type 2 diabetes mellitus with diabetic peripheral angiopathy without gangrene; E78.5 Hyperlipidemia, unspecified; E87.70 Fluid overload, unspecified; I48.0 Paroxysmal atrial fibrillation; Z90.710 Acquired absence of both cervix and uterus; Z88.5 Allergy status to narcotic agent; Z88.0 Allergy status to penicillin; Z79.899 Other long term (current) drug therapy
CPT/HCPCS: 36415; 71045; 71275; 80048; 80053; 80074; 82550; 82948; 83735; 83880; 84100; 84443; 84484; 85025; 85027; 85378; 85610; 85730; 87040; 87426; 90935; 93005; C9113; G0378; J0456; J0696; J1650; J1815; Q9967; U0003

== ENCOUNTER → 2020-06-26 | Outpatient (CLI) | payer MEDICARE ==
[~2020-06-26] MED LIST changes: +ASCO500C18 PO; -ASCO500T20 PO; +ASPI-1197 PO; -ASPI-556 PO; +ATOR10 PO; -ATOR20TA PO; -BIMA2.5D4 OU; +CALC667T8 PO; +CHOL-34 PO; -DORZ10DR14 OU; -ESOM20CA31 PO; +FOLI0.8T2 PO; -FOLI1TAB61 PO; +METO-391 PO; -METO-408 PO; -METO25 PO; +PANT20TA PO; -PRED10B PO; -VITA-164 PO; +VITA100051 PO; -vit d3
== END | disposition home or self-care (01) ==
LOC: SHCH 08:37
PROVIDERS: ATTEND Internal Medicine Cardiovascular Disease
DX: I08.1 Rheumatic disorders of both mitral and tricuspid valves (principal); R01.1 Cardiac murmur, unspecified; E78.5 Hyperlipidemia, unspecified; E11.9 Type 2 diabetes mellitus without complications; I27.20 Pulmonary hypertension, unspecified
CPT/HCPCS: 93306; 93356

== ENCOUNTER → 2020-06-28 | Outpatient (CLI) | payer MEDICARE ==
[~2020-06-28] VITALS: Ht 167.6 cm; Wt 71.2 kg
[~2020-06-28] MED LIST changes: +REGADENOSON 0.4 MG/5 ML PF SYG IVP SCH
== END | disposition home or self-care (01) ==
LOC: SHCH 08:02
PROVIDERS: ATTEND Internal Medicine Cardiovascular Disease
DX: I10 Essential (primary) hypertension (principal); I25.10 Atherosclerotic heart disease of native coronary artery without angina pectoris
CPT/HCPCS: 78452; 93017; 96374; A9500 ×2; J2785

== ENCOUNTER 2021-07-17 15:02 | Emergency (ER) | payer MEDICARE ==
[~2021-07-17 15:02] MED LIST changes: +APIX2.5T PO; -ASPI-1197 PO; +DOXY100T2 PO; +FOLI0.8T43 PO; +GABA-529 PO; -GLIP2.5T2 PO; +OSEL30CA PO; -REGADENOSON 0.4 MG/5 ML PF SYG IVP SCH
[2021-07-17 15:23] LABS: BASOPHILS % (AUTO) 0.5 % (0.0-5.0); EOSINOPHILS % (AUTO) 1.3 % (0.0-8.0); LYMPHOCYTES % (AUTO) 15.5 % (21.0-51.0); MEAN CORPUSCULAR HEMOGLOBIN 36.9 pg (27.0-33.0); MEAN CORPUSCULAR HGB CONC 31.4 g/dL (32.0-36.0); MEAN CORPUSCULAR VOLUME 117.6 fL (79-99); MONOCYTES % (AUTO) 9.8 % (3.0-13.0); NEUTROPHILS % (AUTO) 72.4 % (40.0-77.0); PLATELET COUNT (AUTO) 125 K/uL (130-400); RED BLOOD CELL COUNT(AUTO) 3.06 MIL/uL (4.00-5.50); RED CELL DISTRIBUTION WIDTH 15.3 % (11.0-15.5); WHITE BLOOD COUNT (AUTO) 8.4 K/uL (4.8-10.8)
[2021-07-17] MEDS ORDERED: ONDANSETRON 4MG INJ IVP ONE (15:30)
[2021-07-17 15:34] LABS: CREATININE 2.6 mg/dL (0.5-1.5); POTASSIUM 3.7 mmol/L (3.5-5.1)
[2021-07-17 15:41] LABS: ALBUMIN 3.2 g/dL (3.5-5.0); BILIRUBIN,TOTAL 1.1 mg/dL (0.2-1.0); TOTAL PROTEIN, SERUM 8.5 g/dL (6.0-8.3)
[2021-07-17 15:59] LABS: PLATELET MORPHOLOGY LARGE PLTS PRESENT
[2021-07-17] MEDS ORDERED: ONDA4TAB10 PO (16:28)
[2021-07-17 16:30] VITALS: BP 144/50
== END 2021-07-17 16:49 | disposition home or self-care (01) ==
LOC: EDH 15:02
DX: A08.4 Viral intestinal infection, unspecified (principal); R03.0 Elevated blood-pressure reading, without diagnosis of hypertension; E11.22 Type 2 diabetes mellitus with diabetic chronic kidney disease; N18.6 End stage renal disease; Z99.2 Dependence on renal dialysis; E78.00 Pure hypercholesterolemia, unspecified; Z88.0 Allergy status to penicillin; Z88.5 Allergy status to narcotic agent; Z79.899 Other long term (current) drug therapy; Z79.01 Long term (current) use of anticoagulants
CPT/HCPCS: 36415; 80053; 83605; 83690; 84484; 85025; 87804 ×2; 96374; 99283; J2405

== ENCOUNTER 2021-08-06 10:13 | Emergency (ER) | payer MEDICARE ==
[~2021-08-06] VITALS: Ht 167.6 cm; Wt 67.1 kg
[~2021-08-06 10:13] MED LIST changes: +ONDA4TAB10 PO
[2021-08-06 11:03] LABS: BASOPHILS % (AUTO) 0.7 % (0.0-5.0); EOSINOPHILS % (AUTO) 0.7 % (0.0-8.0); HEMATOCRIT 36.6 % (36-48); LYMPHOCYTES % (AUTO) 20.6 % (21.0-51.0); MEAN CORPUSCULAR HEMOGLOBIN 37.5 pg (27.0-33.0); MEAN CORPUSCULAR HGB CONC 31.4 g/dL (32.0-36.0); MEAN CORPUSCULAR VOLUME 119.2 fL (79-99); MONOCYTES % (AUTO) 14.2 % (3.0-13.0); NEUTROPHILS % (AUTO) 63.4 % (40.0-77.0); PLATELET COUNT (AUTO) 131 K/uL (130-400); RED BLOOD CELL COUNT(AUTO) 3.07 MIL/uL (4.00-5.50); RED CELL DISTRIBUTION WIDTH 15.2 % (11.0-15.5); WHITE BLOOD COUNT (AUTO) 8.3 K/uL (4.8-10.8)
[2021-08-06 11:18] LABS: CREATININE 7.7 mg/dL (0.5-1.5)
[2021-08-06 11:22] LABS: ALBUMIN 3.5 g/dL (3.5-5.0); BILIRUBIN,TOTAL 0.9 mg/dL (0.2-1.0); TOTAL PROTEIN, SERUM 8.8 g/dL (6.0-8.3)
[2021-08-06] MEDS ORDERED: ONDANSETRON 4MG INJ ONE (11:25)
[2021-08-06] MEDS ORDERED: 0.9%NACL 1000ML 500 ML IV ONE (11:30)
[2021-08-06] MEDS ORDERED: ONDANSETRON 4MG INJ IVP ONE (11:30)
[2021-08-06] MEDS ORDERED: ONDA4TAB10 PO (13:09)
[2021-08-06] MEDS ORDERED: DIPH1TAB PO (13:09)
[2021-08-06 13:26] VITALS: BP 188/98
== END 2021-08-06 13:30 | disposition home or self-care (01) ==
LOC: EDH 10:13
DX: A08.4 Viral intestinal infection, unspecified (principal); E86.9 Volume depletion, unspecified; I12.0 Hypertensive chronic kidney disease with stage 5 chronic kidney disease or end stage renal disease; E11.22 Type 2 diabetes mellitus with diabetic chronic kidney disease; N18.6 End stage renal disease; I48.91 Unspecified atrial fibrillation; E78.00 Pure hypercholesterolemia, unspecified; Z88.0 Allergy status to penicillin; Z88.5 Allergy status to narcotic agent; Z79.01 Long term (current) use of anticoagulants; Z79.899 Other long term (current) drug therapy
CPT/HCPCS: 36415; 80053; 83690; 85025; 96374; 99283; J2405; J7040

== ENCOUNTER 2021-11-27 09:58 | Inpatient (IN) | payer MEDICARE ==
[~2021-11-27] VITALS: Ht 165.1 cm; Wt 65.9 kg
[2021-11-27] VITALS (17 sets, daily range): BP systolic 94–140; BP diastolic 42–85
[~2021-11-27 09:58] MED LIST changes: +DIPH1TAB PO
[2021-11-27 10:58] LABS: BASOPHILS % (AUTO) 0.5 % (0.0-5.0); EOSINOPHILS % (AUTO) 1.2 % (0.0-8.0); HEMATOCRIT 36.8 % (36-48); LYMPHOCYTES % (AUTO) 17.7 % (21.0-51.0); MEAN CORPUSCULAR HEMOGLOBIN 37.4 pg (27.0-33.0); MEAN CORPUSCULAR HGB CONC 32.3 g/dL (32.0-36.0); MEAN CORPUSCULAR VOLUME 115.7 fL (79-99); MONOCYTES % (AUTO) 12.6 % (3.0-13.0); NEUTROPHILS % (AUTO) 67.5 % (40.0-77.0); PLATELET COUNT (AUTO) 102 K/uL (130-400); RED BLOOD CELL COUNT(AUTO) 3.18 MIL/uL (4.00-5.50); RED CELL DISTRIBUTION WIDTH 16.4 % (11.0-15.5); WHITE BLOOD COUNT (AUTO) 10.7 K/uL (4.8-10.8)
[2021-11-27 11:06] LABS: CREATININE 5.5 mg/dL (0.5-1.5)
[2021-11-27 11:11] LABS: ALBUMIN 2.9 g/dL (3.5-5.0); TOTAL PROTEIN, SERUM 8.3 g/dL (6.0-8.3)
[2021-11-27 11:42] LABS: B-TYPE NATRIURETIC PEPTIDE 2850 pg/mL (0-100)
[2021-11-27] MEDS ORDERED: BENZONATATE 100 MG CAPSULE PO STA (14:49)
[2021-11-27] MEDS ORDERED: BENZONATATE 100 MG CAPSULE PO ONE (14:49)
[2021-11-27] MEDS: BENZONATATE 100 MG CAPSULE PO SCH ×2 (15:00→22:45)
[2021-11-27] MEDS ORDERED: METO50TA9 PO (15:03)
[2021-11-27] MEDS ORDERED: GLIP2.5T2 PO (15:03)
[2021-11-27] MEDS: AZITHROMYCIN 500MG+NS 250ML 250 ML IV SCH (20:02)
[2021-11-27] MEDS: CEFTRIAXONE 1G VIAL IVP SCH (20:02)
[2021-11-28 04:20] VITALS: BP 94/47
[2021-11-28] MEDS: BENZONATATE 100 MG CAPSULE PO SCH ×3 (05:17→22:30)
[2021-11-28 07:10] VITALS: BP 132/61
[2021-11-28] MEDS: PANTOPRAZOLE 40 MG TAB DR PO SCH (08:24)
[2021-11-28] MEDS: LOPERAMIDE HCL 2 MG CAP PO PRN (11:22)
[2021-11-28 12:12] VITALS: BP 140/68
[2021-11-28 16:06] VITALS: BP 142/73
[2021-11-28] MEDS: CEFTRIAXONE 1G VIAL IVP SCH (16:24)
[2021-11-28] MEDS: AZITHROMYCIN 500MG+NS 250ML 250 ML IV SCH (16:25)
[2021-11-28 16:42] LABS: HEPATITIS B SURFACE ANTIGEN Reactive (Nonreactive)
[2021-11-28] MEDS: ONDANSETRON 4MG INJ IVP PRN ×2 (16:49→22:31)
[2021-11-28 20:45] VITALS: BP 136/65
[2021-11-28] MEDS: ACETAMINOPHEN 325 MG TAB PO PRN (22:31)
[2021-11-28 23:19] VITALS: BP 110/52
[2021-11-29] VITALS (17 sets, daily range): BP systolic 90–164; BP diastolic 40–93
[2021-11-29 05:23] LABS: BASOPHILS % (AUTO) 0.5 % (0.0-5.0); EOSINOPHILS % (AUTO) 1.3 % (0.0-8.0); HEMATOCRIT 34.3 % (36-48); LYMPHOCYTES % (AUTO) 21.7 % (21.0-51.0); MEAN CORPUSCULAR HEMOGLOBIN 36.7 pg (27.0-33.0); MEAN CORPUSCULAR HGB CONC 32.1 g/dL (32.0-36.0); MEAN CORPUSCULAR VOLUME 114.3 fL (79-99); MONOCYTES % (AUTO) 14.5 % (3.0-13.0); NEUTROPHILS % (AUTO) 61.6 % (40.0-77.0); PLATELET COUNT (AUTO) 113 K/uL (130-400); RED CELL DISTRIBUTION WIDTH 15.9 % (11.0-15.5); WHITE BLOOD COUNT (AUTO) 7.6 K/uL (4.8-10.8)
[2021-11-29 05:37] LABS: CREATININE 5.4 mg/dL (0.5-1.5); PHOSPHORUS 3.6 mg/dL (2.5-4.9); POTASSIUM 3.6 mmol/L (3.5-5.1)
[2021-11-29] MEDS: PANTOPRAZOLE 40 MG TAB DR PO SCH (06:32)
[2021-11-29] MEDS: BENZONATATE 100 MG CAPSULE PO SCH ×3 (06:32→22:10)
[2021-11-29] MEDS: ACETAMINOPHEN 325 MG TAB PO PRN (16:52)
[2021-11-29] MEDS: CEFTRIAXONE 1G VIAL IVP SCH (18:40)
[2021-11-29] MEDS: AZITHROMYCIN 500MG+NS 250ML 250 ML IV SCH (18:40)
[2021-11-29] MEDS: LOPERAMIDE HCL 2 MG CAP PO PRN (22:10)
[2021-11-30 00:22] VITALS: BP 124/70
[2021-11-30 04:47] VITALS: BP 123/62
[2021-11-30] MEDS: PANTOPRAZOLE 40 MG TAB DR PO SCH (05:46)
[2021-11-30] MEDS: BENZONATATE 100 MG CAPSULE PO SCH (05:46)
[2021-11-30 08:00] VITALS: BP 111/55
[2021-11-30] MEDS: LOPERAMIDE HCL 2 MG CAP PO PRN (10:26)
[2021-11-30] MEDS ORDERED: LEVO250S3 PO (11:33)
[2021-11-30 12:00] VITALS: BP 135/71
== END 2021-11-30 13:45 | disposition home or self-care (01) | DRG 193 ==
LOC: EDH 09:58 → EDHIP 14:15 → 3AH 16:29
PROVIDERS: ADMIT Internal Medicine Nephrology; ATTEND Internal Medicine Nephrology
PROC: 5A1D70Z Performance of Urinary Filtration, Intermittent, Less than 6 Hours Per Day (ICD-10-PCS; principal; 2021-11-27)
PROC: 5A1D70Z Performance of Urinary Filtration, Intermittent, Less than 6 Hours Per Day (ICD-10-PCS; 2021-11-29)
DX: J18.9 Pneumonia, unspecified organism (principal); N18.6 End stage renal disease; I12.0 Hypertensive chronic kidney disease with stage 5 chronic kidney disease or end stage renal disease; J91.8 Pleural effusion in other conditions classified elsewhere; Z20.822 Contact with and (suspected) exposure to COVID-19; E87.70 Fluid overload, unspecified; D64.9 Anemia, unspecified; E11.22 Type 2 diabetes mellitus with diabetic chronic kidney disease; E11.621 Type 2 diabetes mellitus with foot ulcer; E78.00 Pure hypercholesterolemia, unspecified; I48.91 Unspecified atrial fibrillation; J20.9 Acute bronchitis, unspecified; L97.509 Non-pressure chronic ulcer of other part of unspecified foot with unspecified severity; R09.02 Hypoxemia; R06.03 Acute respiratory distress; Z83.3 Family history of diabetes mellitus; Z90.710 Acquired absence of both cervix and uterus; Z91.11 Patient's noncompliance with dietary regimen; Z99.2 Dependence on renal dialysis
CPT/HCPCS: 36415; 71045; 80048; 80053; 82550; 82948; 83874; 83880; 84100; 84484; 85025; 86704; 86706; 87040; 87324; 87340; 87635; 87804; 90935; 93005; C9803; G0378; J0456; J0696; J2405

== ENCOUNTER 2022-01-20 09:37 | Inpatient (IN) | payer MEDICARE ==
[2022-01-20] VITALS (16 sets, daily range): BP systolic 92–131; BP diastolic 46–59
[~2022-01-20] VITALS: Ht 167.6 cm; Wt 58.6 kg
[~2022-01-20 09:37] MED LIST changes: -CALC667T8 PO; -DIPH1TAB PO; -DOXY100T2 PO; -FOLI0.8T2 PO; -GABA-529 PO; +GLIP2.5T2 PO; -METO-391 PO; +METO50TA9 PO; -ONDA4TAB10 PO; -OSEL30CA PO; +PHOSLOC PO
[2022-01-20 10:09] LABS: BASOPHILS % (AUTO) 0.3 % (0.0-5.0); EOSINOPHILS % (AUTO) 0.5 % (0.0-8.0); LYMPHOCYTES % (AUTO) 19.3 % (21.0-51.0); MEAN CORPUSCULAR HEMOGLOBIN 36.9 pg (27.0-33.0); MONOCYTES % (AUTO) 12.1 % (3.0-13.0); NEUTROPHILS % (AUTO) 67.3 % (40.0-77.0); PLATELET COUNT (AUTO) 214 K/uL (130-400); RED BLOOD CELL COUNT(AUTO) 2.41 MIL/uL (4.00-5.50); RED CELL DISTRIBUTION WIDTH 15.2 % (11.0-15.5); WHITE BLOOD COUNT (AUTO) 12.8 K/uL (4.8-10.8)
[2022-01-20 10:16] LABS: CREATININE 6.8 mg/dL (0.5-1.5); POTASSIUM 4.9 mmol/L (3.5-5.1)
[2022-01-20 10:24] LABS: ALBUMIN 2.4 g/dL (3.5-5.0); TOTAL PROTEIN, SERUM 8.4 g/dL (6.0-8.3)
[2022-01-20] MEDS ORDERED: CALC-125 PO (10:25)
[2022-01-20] MEDS ORDERED: MIDO10TA PO (10:25)
[2022-01-20] MEDS ORDERED: 0.9% NACL 250ML 250 ML IV ONE (10:30)
[2022-01-20 10:32] LABS: MAGNESIUM 1.7 mg/dL (1.80-2.40); PHOSPHORUS 3.3 mg/dL (2.5-4.9)
[2022-01-20] MEDS ORDERED: MAGNESIUM 2GM PREMIX 50ML 50 ML IV SCH (11:00)
[2022-01-20 12:00] LABS: HEMATOCRIT 25.9 % (36-48)
[2022-01-20 12:02] LABS: PROTHROMBIN TIME 10.9 SEC (9.6-11.6)
[2022-01-20] MEDS ORDERED: IOHEXOL 350 MG/ML 100ML INFUS..BTL IV ONE (12:18)
[2022-01-20] MEDS ORDERED: MAG/ALUM/SIMETH 30 ML UDCUP PO PRN (13:00)
[2022-01-20] MEDS ORDERED: ACETAMINOPHEN 325 MG TAB PO PRN ×2 (13:00)
[2022-01-20] MEDS ORDERED: ONDANSETRON 4MG INJ IV PRN (13:00)
[2022-01-20] MEDS ORDERED: OCTREOTIDE ACETATE 1,250 MCG in 0.9% NACL 250ML 250 ML IV SCH (13:30)
[2022-01-20 13:32] LABS: HEMOGLOBIN A1C 6.9 % (4.0-6.0)
[2022-01-20 14:01] LABS: HEMATOCRIT 25.6 % (36-48)
[2022-01-20] MEDS ORDERED: PEG 3350/NA SULF,BICARB,CL/KCL 4000 ML SOLN PO SCH (17:00)
[2022-01-20 20:37] LABS: HEMATOCRIT 25.7 % (36-48)
[2022-01-20] MEDS: PANTOPRAZOLE 40 MG/VIAL IVP SCH (22:21)
[2022-01-21] VITALS (12 sets, daily range): BP systolic 103–116; BP diastolic 31–57
[2022-01-21 05:23] LABS: BASOPHILS % (AUTO) 0.5 % (0.0-5.0); EOSINOPHILS % (AUTO) 1.5 % (0.0-8.0); HEMATOCRIT 21.2 % (36-48); LYMPHOCYTES % (AUTO) 23.6 % (21.0-51.0); MEAN CORPUSCULAR HEMOGLOBIN 36.3 pg (27.0-33.0); MEAN CORPUSCULAR VOLUME 109.8 fL (79-99); MONOCYTES % (AUTO) 12.2 % (3.0-13.0); NEUTROPHILS % (AUTO) 61.8 % (40.0-77.0); PLATELET COUNT (AUTO) 192 K/uL (130-400); RED BLOOD CELL COUNT(AUTO) 1.93 MIL/uL (4.00-5.50); RED CELL DISTRIBUTION WIDTH 15.5 % (11.0-15.5); WHITE BLOOD COUNT (AUTO) 9.2 K/uL (4.8-10.8)
[2022-01-21 05:40] LABS: ALBUMIN 1.8 g/dL (3.5-5.0); CREATININE 3.7 mg/dL (0.5-1.5); PHOSPHORUS 3.5 mg/dL (2.5-4.9); POTASSIUM 3.9 mmol/L (3.5-5.1); TOTAL PROTEIN, SERUM 6.6 g/dL (6.0-8.3)
[2022-01-21] MEDS: PANTOPRAZOLE 40 MG/VIAL IVP SCH ×2 (08:28→21:42)
[2022-01-21] MEDS ORDERED: PROPOFOL 10 MG/ML 20ML VIAL IV ONE (13:17)
[2022-01-21] MEDS ORDERED: 0.9% NACL 500ML IV.SOLN 500 ML IV ONE (15:36)
[2022-01-22] VITALS (22 sets, daily range): BP systolic 95–128; BP diastolic 43–62
[2022-01-22 05:26] LABS: HEMATOCRIT 25.4 % (36-48); MEAN CORPUSCULAR HEMOGLOBIN 34.6 pg (27.0-33.0); MEAN CORPUSCULAR HGB CONC 31.9 g/dL (32.0-36.0); MEAN CORPUSCULAR VOLUME 108.5 fL (79-99); RED BLOOD CELL COUNT(AUTO) 2.34 MIL/uL (4.00-5.50); RED CELL DISTRIBUTION WIDTH 20.5 % (11.0-15.5)
[2022-01-22 05:41] LABS: CREATININE 5.1 mg/dL (0.5-1.5); POTASSIUM 4.3 mmol/L (3.5-5.1)
[2022-01-22] MEDS: PANTOPRAZOLE 40 MG/VIAL IVP SCH ×2 (11:19→20:40)
[2022-01-22] MEDS ORDERED: EPOETIN ALFA-EPBX (NON-ESRD) 10,000 UNIT/ML VIAL SQ SCH (16:30)
[2022-01-23] VITALS (8 sets, daily range): BP systolic 108–151; BP diastolic 37–78
[2022-01-23 05:12] LABS: BASOPHILS % (AUTO) 0.6 % (0.0-5.0); EOSINOPHILS % (AUTO) 2.7 % (0.0-8.0); HEMATOCRIT 25.4 % (36-48); LYMPHOCYTES % (AUTO) 29.1 % (21.0-51.0); MEAN CORPUSCULAR HEMOGLOBIN 34.7 pg (27.0-33.0); MEAN CORPUSCULAR HGB CONC 32.3 g/dL (32.0-36.0); MEAN CORPUSCULAR VOLUME 107.6 fL (79-99); MONOCYTES % (AUTO) 14.9 % (3.0-13.0); NEUTROPHILS % (AUTO) 51.6 % (40.0-77.0); PLATELET COUNT (AUTO) 146 K/uL (130-400); RED BLOOD CELL COUNT(AUTO) 2.36 MIL/uL (4.00-5.50); RED CELL DISTRIBUTION WIDTH 19.2 % (11.0-15.5)
[2022-01-23 05:36] LABS: ALBUMIN 1.9 g/dL (3.5-5.0); CREATININE 3.9 mg/dL (0.5-1.5); POTASSIUM 3.6 mmol/L (3.5-5.1); TOTAL PROTEIN, SERUM 6.9 g/dL (6.0-8.3)
[2022-01-23] MEDS: PANTOPRAZOLE 40 MG/VIAL IVP SCH ×2 (10:00→21:07)
[2022-01-23] MEDS: MIDODRINE HCL 5 MG TABLET PO SCH ×3 (10:02→21:07)
[2022-01-23] MEDS: INSULIN HUMULIN R 100 UNIT/ML 3ML SQ SCH (21:06)
[2022-01-23] MEDS: ATORVASTATIN 20 MG TABLET PO SCH (21:07)
[2022-01-24] VITALS (22 sets, daily range): BP systolic 91–151; BP diastolic 36–67
[2022-01-24] MEDS ORDERED: DEXTROSE 50%-WATER 50 ML DISP.SYRIN IV ONE (03:22)
[2022-01-24 03:41] LABS: BASOPHILS % (AUTO) 0.5 % (0.0-5.0); EOSINOPHILS % (AUTO) 1.2 % (0.0-8.0); HEMATOCRIT 25.9 % (36-48); LYMPHOCYTES % (AUTO) 22.3 % (21.0-51.0); MEAN CORPUSCULAR HGB CONC 32.4 g/dL (32.0-36.0); MEAN CORPUSCULAR VOLUME 107.9 fL (79-99); MONOCYTES % (AUTO) 14.9 % (3.0-13.0); NEUTROPHILS % (AUTO) 58.7 % (40.0-77.0); PLATELET COUNT (AUTO) 178 K/uL (130-400); RED CELL DISTRIBUTION WIDTH 19.2 % (11.0-15.5); WHITE BLOOD COUNT (AUTO) 9.2 K/uL (4.8-10.8)
[2022-01-24 03:48] LABS: CREATININE 5.1 mg/dL (0.5-1.5); POTASSIUM 3.6 mmol/L (3.5-5.1)
[2022-01-24] MEDS ORDERED: DEXTROSE 50%-WATER 50 ML DISP.SYRIN IV PRN (04:00)
[2022-01-24] MEDS ORDERED: GLUCAGON 1MG KIT 1 MG ML IM PRN (04:00)
[2022-01-24] MEDS: INSULIN HUMULIN R 100 UNIT/ML 3ML SQ SCH (06:47)
[2022-01-24] MEDS: Vitamin B Complex/Vit C/Folic Acid PO SCH (09:14)
[2022-01-24] MEDS: PANTOPRAZOLE 40 MG/VIAL IVP SCH ×2 (09:14→21:33)
[2022-01-24] MEDS: MIDODRINE HCL 5 MG TABLET PO SCH ×3 (09:14→21:33)
[2022-01-24] MEDS: ATORVASTATIN 20 MG TABLET PO SCH (21:33)
[2022-01-24] MEDS ORDERED: INSULIN HUMULIN R 100 UNIT/ML 3ML SQ ONE (22:00)
[2022-01-24] MEDS ORDERED: INSULIN HUMULIN R 100 UNIT/ML 3ML ONE (22:05)
[2022-01-25] VITALS: BP 131/65
[2022-01-25 04:00] VITALS: BP 134/73
[2022-01-25 05:24] LABS: HEMATOCRIT 27.2 % (36-48); MEAN CORPUSCULAR HEMOGLOBIN 35.1 pg (27.0-33.0); MEAN CORPUSCULAR HGB CONC 31.6 g/dL (32.0-36.0); NUCLEATED RED BLOOD CELLS 0.2 % (0.0-0.19); PLATELET COUNT (AUTO) 179 K/uL (130-400); RED BLOOD CELL COUNT(AUTO) 2.45 MIL/uL (4.00-5.50); RED CELL DISTRIBUTION WIDTH 19.1 % (11.0-15.5); WHITE BLOOD COUNT (AUTO) 9.6 K/uL (4.8-10.8)
[2022-01-25 05:35] LABS: ALBUMIN 1.9 g/dL (3.5-5.0); ASPARTATE AMINOTRANSFERASE 15 U/L (10-37); CARBON DIOXIDE 33 mmol/L (21-32); CHLORIDE 98 mmol/L (101-111); CREATININE 4.1 mg/dL (0.5-1.5); GLOMERULAR FILTR. RATE CALC 11 mL/min (>60); GLUCOSE,RANDOM 100 mg/dL (70-105); PHOSPHORUS 2.3 mg/dL (2.5-4.9); POTASSIUM 4.3 mmol/L (3.5-5.1); SODIUM SERUM 133 mmol/L (136-145); UREA NITROGEN, BLOOD 19 mg/dL (7-18)
[2022-01-25 05:37] LABS: ALANINE AMINOTRANSFERASE < 6 U/L (12-78)
[2022-01-25 06:23] LABS: BAND NEUTROPHILS % (MANUAL) 2 % (0-2); EOSINOPHILS % (MANUAL) 1 % (1-6); LYMPHOCYTES % (MANUAL) 23 % (22-44); MAN.DIFF COMMENT-IMPRESSION MANUAL DIFFERENTIAL; MONOCYTES % (MANUAL) 12 % (2-9); REACTIVE LYMPHOCYTES 1 % (0-0); SEGMENTED NEUTROPHILS % 61 % (40-70)
[2022-01-25 06:24] LABS: PLATELET MORPHOLOGY COMMENT ADEQUATE
[2022-01-25 07:25] VITALS: BP 135/63
[2022-01-25] MEDS: Vitamin B Complex/Vit C/Folic Acid PO SCH (09:40)
[2022-01-25] MEDS: PANTOPRAZOLE 40 MG/VIAL IVP SCH (09:40)
[2022-01-25] MEDS: MIDODRINE HCL 5 MG TABLET PO SCH ×2 (09:40→14:24)
[2022-01-25 11:15] VITALS: BP 153/67
[2022-01-25] MEDS ORDERED: PANT40TA54 PO (13:11)
[2022-01-25] MEDS ORDERED: MIDO10TA PO (13:11)
== END 2022-01-25 15:00 | disposition home or self-care (01) | DRG 377 ==
LOC: EDH 09:37 → EDHIP 12:49 → 3BH 22:43
PROVIDERS: ADMIT Hospitalist; ATTEND Hospitalist
PROC: 5A1D70Z Performance of Urinary Filtration, Intermittent, Less than 6 Hours Per Day (ICD-10-PCS; 2022-01-20)
PROC: 0DJD8ZZ Inspection of Lower Intestinal Tract, Via Natural or Artificial Opening Endoscopic (ICD-10-PCS; principal; 2022-01-21)
PROC: 30233N1 Transfusion of Nonautologous Red Blood Cells into Peripheral Vein, Percutaneous Approach (ICD-10-PCS; 2022-01-21)
PROC: 5A1D70Z Performance of Urinary Filtration, Intermittent, Less than 6 Hours Per Day (ICD-10-PCS; 2022-01-22)
PROC: 5A1D70Z Performance of Urinary Filtration, Intermittent, Less than 6 Hours Per Day (ICD-10-PCS; 2022-01-24)
DX: K57.31 Diverticulosis of large intestine without perforation or abscess with bleeding (principal); N18.6 End stage renal disease; E44.0 Moderate protein-calorie malnutrition; D62 Acute posthemorrhagic anemia; I13.2 Hypertensive heart and chronic kidney disease with heart failure and with stage 5 chronic kidney disease, or end stage renal disease; Z20.822 Contact with and (suspected) exposure to COVID-19; E83.42 Hypomagnesemia; I48.91 Unspecified atrial fibrillation; I50.9 Heart failure, unspecified; I25.5 Ischemic cardiomyopathy; E78.00 Pure hypercholesterolemia, unspecified; I95.1 Orthostatic hypotension; D63.8 Anemia in other chronic diseases classified elsewhere; E11.22 Type 2 diabetes mellitus with diabetic chronic kidney disease; E11.51 Type 2 diabetes mellitus with diabetic peripheral angiopathy without gangrene; E11.649 Type 2 diabetes mellitus with hypoglycemia without coma; F41.9 Anxiety disorder, unspecified; G47.00 Insomnia, unspecified; I25.10 Atherosclerotic heart disease of native coronary artery without angina pectoris; Z99.2 Dependence on renal dialysis; Z90.710 Acquired absence of both cervix and uterus; Z88.0 Allergy status to penicillin; Z79.01 Long term (current) use of anticoagulants; Z68.20 Body mass index [BMI] 20.0-20.9, adult
CPT/HCPCS: 36415; 45378; 74174; 80048; 80053; 82270; 82533; 82948; 83036; 83735; 84100; 85014; 85018; 85025; 85027; 85610; 86850; 86900; 86901; 86923; 87635; 87804; 90935; 93005; 93306; 93356; 97039; C9113; C9803; G0378; J1815; J2354; J2704; J3475; J7030; J7040; J7050; J7070; P9016; Q9967

== ENCOUNTER 2022-05-30 16:07 | Emergency (ER) | payer OTHER, MEDICARE ==
[~2022-05-30] VITALS: Ht 167.6 cm; Wt 54.0 kg
[~2022-05-30 16:07] MED LIST changes: +CALC-125 PO; +MIDO10TA PO; -PANT20TA PO; +PANT40TA54 PO
[2022-05-30 17:37] VITALS: BP 163/75
== END 2022-05-30 17:36 | disposition home or self-care (01) ==
LOC: EDH 16:07
DX: T82.858A Stenosis of other vascular prosthetic devices, implants and grafts, initial encounter (principal); E11.22 Type 2 diabetes mellitus with diabetic chronic kidney disease; I12.0 Hypertensive chronic kidney disease with stage 5 chronic kidney disease or end stage renal disease; N18.6 End stage renal disease; E78.00 Pure hypercholesterolemia, unspecified; Z79.01 Long term (current) use of anticoagulants; Z79.84 Long term (current) use of oral hypoglycemic drugs; Z79.899 Other long term (current) drug therapy; Z88.0 Allergy status to penicillin; Z88.5 Allergy status to narcotic agent; Z90.710 Acquired absence of both cervix and uterus; Z99.2 Dependence on renal dialysis

== ENCOUNTER → 2022-06-05 | Outpatient (CLI) | payer OTHER, MEDICARE | END | disposition home or self-care (01) | LOC: RAH 07:23 | PROVIDERS: ATTEND Internal Medicine Gastroenterology | DX: R68.81 Early satiety (principal); R63.4 Abnormal weight loss | CPT/HCPCS: 78264; 71046; A9541 ==

== ENCOUNTER 2023-02-22 17:17 | Emergency (ER) | payer OTHER, MEDICARE ==
[~2023-02-22] VITALS: Ht 167.6 cm; Wt 53.5 kg
[2023-02-22 18:01] LABS: BASOPHILS # (AUTO) 0.06 K/uL (0.00-0.20); EOSINOPHILS # (AUTO) 0.13 K/uL (0.00-0.70); EOSINOPHILS % (AUTO) 2.1 % (0.0-8.0); IMMATURE GRANULOCYTE ABSOLUTE 0.03 K/uL (0-1); LYMPHOCYTES # (AUTO) 1.2 K/uL (1.0-4.8); LYMPHOCYTES % (AUTO) 19.9 % (21.0-51.0); MEAN CORPUSCULAR HEMOGLOBIN 36.9 pg (27.0-33.0); MEAN CORPUSCULAR HGB CONC 31.9 g/dL (32.0-36.0); MEAN CORPUSCULAR VOLUME 115.4 fL (79-99); MONOCYTES # (AUTO) 0.9 K/uL (0.1-1.0); MONOCYTES % (AUTO) 15.3 % (3.0-13.0); NEUTROPHILS # (AUTO) 3.7 K/uL (1.8-7.7); NEUTROPHILS % (AUTO) 61.2 % (40.0-77.0); PLATELET COUNT (AUTO) 157 K/uL (130-400); RED BLOOD CELL COUNT(AUTO) 3.12 MIL/uL (4.00-5.50); RED CELL DISTRIBUTION WIDTH 15.6 % (11.0-15.5); WHITE BLOOD COUNT (AUTO) 6.1 K/uL (4.8-10.8)
[2023-02-22 18:09] LABS: CREATININE 2.3 mg/dL (0.5-1.5); POTASSIUM 3.3 mmol/L (3.5-5.1)
[2023-02-22 20:45] VITALS: BP 168/72; PULSE 84; RESP 16; O2SAT 99
== END 2023-02-22 20:46 | disposition home or self-care (01) ==
LOC: EDH 17:17
DX: T82.858A Stenosis of other vascular prosthetic devices, implants and grafts, initial encounter (principal); I12.0 Hypertensive chronic kidney disease with stage 5 chronic kidney disease or end stage renal disease; E11.22 Type 2 diabetes mellitus with diabetic chronic kidney disease; N18.6 End stage renal disease; Z99.2 Dependence on renal dialysis; E78.00 Pure hypercholesterolemia, unspecified; Z79.01 Long term (current) use of anticoagulants; Z79.82 Long term (current) use of aspirin; Z79.84 Long term (current) use of oral hypoglycemic drugs; Z79.899 Other long term (current) drug therapy; Z88.0 Allergy status to penicillin; Z88.5 Allergy status to narcotic agent; Z90.710 Acquired absence of both cervix and uterus
CPT/HCPCS: 36415; 80048; 85025